=== PATIENT | male | born 1945 | race African-American/Black ===

== ENCOUNTER → 2019-10-05 | Day surgery (SDC) | payer MEDICARE ==
[2019-09-30 10:37] LABS: BASOPHILS % 0.8 % (0.0-1.0); EOSINOPHILS # (AUTO) 0.1 (0.0-0.4); EOSINOPHILS % 1.4 % (0.0-6.0); HEMATOCRIT 35.2 % (38.2-49.6); HEMOGLOBIN 11.7 g/dL (14.0-18.0); LYMPHOCYTES # (AUTO) 1.4 (1.0-3.2); LYMPHOCYTES % 28.2 % (18.0-39.1); MEAN CORPUSCULAR HEMOGLOBIN 31.3 pg (28-32); MEAN CORPUSCULAR HGB CONC 33.2 g/dL (31-35); MEAN CORPUSCULAR VOLUME 94.1 fL (81-99); MONOCYTES # (AUTO) 0.5 (0.2-0.8); MONOCYTES % 9.7 % (4.4-11.3); NEUTROPHILS # (AUTO) 2.9 (2.1-6.9); NEUTROPHILS % 59.7 % (38.7-80.0); PLATELET COUNT 174 x10e3/uL (140-360); RED BLOOD COUNT 3.74 x10e6/uL (4.3-5.7); RED CELL DISTRIBUTION WIDTH 13.2 % (11.7-14.4)
[2019-09-30 11:09] LABS: ALANINE AMINOTRANSFERASE 14 IU/L (0-55); ALBUMIN 3.9 g/dL (3.5-5.0); ALBUMIN/GLOBULIN RATIO 1.1 (0.8-2.0); ALKALINE PHOSPHATASE 69 IU/L (40-150); ANION GAP 11.2 mmol/L (8-16); BLOOD UREA NITROGEN 11 mg/dL (7-26); BUN/CREATININE RATIO 9 (6-25); CALCIUM 9.2 mg/dL (8.4-10.2); CARBON DIOXIDE 28 mmol/L (22-29); CHLORIDE 106 mmol/L (98-107); CREATININE, SERUM 1.21 mg/dL (0.72-1.25); EST GLOMERULAR FILTRATION RATE > 60 ML/MIN (60-); GLUCOSE 97 mg/dL (74-118); POTASSIUM 4.2 mmol/L (3.5-5.1); SODIUM 141 mmol/L (136-145)
[2019-10-05] VITALS (8 sets, daily range): BP systolic 98–118; BP diastolic 62–85
[~2019-10-05] VITALS: Ht 180.3 cm; Wt 81.2 kg
[~2019-10-05] MED LIST: ALPRAZOLAM 0.5 MG TAB ONE; DIPHENHYDRAMINE HCL 25 MG CAP ONE; FENTANYL CITRATE/PF 100MCG/2 ML INJ ONE; HEPARIN SOD/SOD CHLORIDE 2,000 ML ONE; IOPAMIDOL 370 MG/ML 200 ML INFUS..BTL INJ ONE; LIDOCAINE HCL 2% LOCAL 20 ML VIAL ONE; MIDAZOLAM HCL 2 MG/2 ML VIAL ONE; SODIUM CHLORIDE 0.9% 1000ML 1,000 ML ONE; VERAPAMIL HCL 2.5 MG/ML 2 ML VIAL ONE
--- OUTSIDE RECORDS SUMMARY | 2019-10-05 07:16 | XMS REPORT ---
Author [facility] Address Unknown Phone Unavailable Care Team Providers Care Certified Hyperbaric Technician Name Role Phone Unavailable Unavailable Problems This patient has no known problems. Allergies, Adverse Reactions, Alerts This patient has no known allergies or adverse reactions. Medications This patient has no known medications. Encounters Start Date/Time End Date/Time Encounter Type Admission Type Attending Clinicians Care Facility Care Department Encounter ID 2019-09-04 14:47:00 2019-09-04 14:47:00 Outpatient [facility] [id number] 2019-07-15 09:39:00 2019-07-15 09:39:00 Outpatient [facility] [id number] Results Test Description Test Time Test Comments Text Results Atomic Results Result Comments Creatine Kinase 2019-09-14 21:57:15 CK (test code=CK) 210 U/L 39-308 Creatine Kinase MB [id number] 21:57:15* Test Item Value Reference Range Comments CKMB (test code=CKMB) 2.6 ng/mL 0.0-4.9 CKMB % (test code=CKMB %) 1.2 % 0.0-3.4 POC [id number] 20:33:35* Test Item Value Reference Range Comments Glucose POC (test code=Glucose POC) 123 mg/dL 70-115 If you consider your patient critically ill, the Lacy-Accu Check Infrom II meter should not be used for Glucose determination. Draw a venous Glucose and send to the main Lab for analysis. Creatine [id number] 19:22:43* Test Item Value Reference Range Comments CK (test code=CK) 223 U/L 39-308 Troponin [id number] 19:21:26* Test Item Value Reference Range Comments Troponin-T (test code=Troponin-T) 72.200 ng/L 0.000-22.000 Critical results called to Rukhsana Sears at 09/14/2019 19:20:53 [employer] by [employer]. Read back and verified? yesThe CV of the assay at 99th percentile for both male and female patient population is < 10%. A rise and fall in OPAL with at least one value above the 99th percentile with clinical evidence of myocardial ischemia would support a diagnosis of AMI. A delta of at least 20% is recommended to assess acute changes in results above the 99th percentile in serial measurements. Stable OPAL levels (<20%) delta above the 99th percentile URL would support a diagnosis of chronic myocardial injury. POC [id number] 17:48:11* Test Item Value Reference Range Comments Glucose POC (test code=Glucose POC) 136 mg/dL 70-115 If you consider your patient critically ill, the Lacy-Accu Check Infrom II meter should not be used for Glucose determination. Draw a venous Glucose and send to the main Lab for analysis. Prothrombin Time and [id number] 14:37:38* Test Item Value Reference Range Comments Prothrombin Time (test code=Prothrombin Time) 12.5 seconds 9.8-13.4 INR (test code=INR) 1.1 ratio 0.6-1.2 Partial Thromboplastin [id number] 14:37:38* Test Item Value Reference Range Comments Partial Thromboplastin Time (test code=Partial Thromboplastin Time) 29.80 seconds 24.39-37.25 Comprehensive Metabolic [id number] 14:05:18* Test Item Value Reference Range Comments Sodium Level (test code=Sodium Level) 135.0 mmol/L 135.0-145.0 Potassium Level (test code=Potassium Level) see comment mmol/L 3.5-5.1 k=5.2ast=35Specimen slightly hemolyzed; K and AST may be falsely elevated. Suggest verify by recollect.willy montanez Chloride Level (test code=Chloride Level) 101 mmol/L 98-105 CO2 (test code=CO2) 20 mmol/L 22-29 Anion Gap (test code=Anion Gap) 14 mmol/L 7-16 BUN (test code=BUN) 13.90 mg/dL 8.00-23.00 Creatinine Level (test code=Creatinine Level) 1.40 mg/dL 0.70-1.20 BUN/Creat Ratio (test code=BUN/Creat Ratio) 10 Glucose Level (test code=Glucose Level) 126 mg/dL 70-115 Calcium Level (test code=Calcium Level) 9.1 mg/dL 8.3-10.5 Alk Phos (test code=Alk Phos) 75 U/L 40-129 Bilirubin Total (test code=Bilirubin Total) 0.4 mg/dL 0.1-0.9 Albumin Level (test code=Albumin Level) 4.3 g/dL 3.5-5.2 Protein Total (test code=Protein Total) 7.6 g/dL 6.4-8.3 ALT (test code=ALT) 15 U/L 1-41 AST (test code=AST) see comment U/L 1-40 k=5.2ast=35Specimen slightly hemolyzed; K and AST may be falsely elevated. Suggest verify by recollect.d lisseth Globulin (test code=Globulin) 3.3 g/dL 2.9-3.1 A/G Ratio (test code=A/G Ratio) 1.3 ratio eGFR AA (test code=eGFR AA) 60 mL/min/1.73 m2 eGFR (estimated Glomerular Filtration Rate) is an estimated value, calculated from the patient's serum creatinine using the MDRD equation. It is NOT the patient's actual GFR. The eGFR provides a more clinically useful measure of kidney disease than serum creatinine alone.This calculation takes sex and race into account, if the information is provided. If the race is not provided, and the patient is -[place], multiply by 1.212. If sex is not provided, and the patient is female, multiply by 0.742. Results for patients <18 years of age have not been validated by the MDRD study and should be interpreted with caution. eGFR Result Interpretation:eGFR > or=60 is in the Normal RangeeGFR < 60 may mean kidney diseaseeGFR < 15 may mean kidney failure Ranges recommended by the National Kidney Foundation, http://nkdep.nih.gov Creatine [id number] 14:05:18* Test Item Value Reference Range Comments CK (test code=CK) 261 U/L 39-308 Comprehensive Metabolic [id number] 14:05:18* Test Item Value Reference Range Comments Sodium Level (test code=Sodium Level) 135.0 mmol/L 135.0-145.0 Potassium Level (test code=Potassium Level) see comment mmol/L 3.5-5.1 k=5.2ast=35Specimen slightly hemolyzed; K and AST may be falsely elevated. Suggest verify by recollect.d lisseth Chloride Level (test code=Chloride Level) 101 mmol/L 98-105 CO2 (test code=CO2) 20 mmol/L 22-29 Anion Gap (test code=Anion Gap) 14 mmol/L 7-16 BUN (test code=BUN) 13.90 mg/dL 8.00-23.00 Creatinine Level (test code=Creatinine Level) 1.40 mg/dL 0.70-1.20 BUN/Creat Ratio (test code=BUN/Creat Ratio) 10 Glucose Level (test code=Glucose Level) 126 mg/dL 70-115 Calcium Level (test code=Calcium Level) 9.1 mg/dL 8.3-10.5 Alk Phos (test code=Alk Phos) 75 U/L 40-129 Bilirubin Total (test code=Bilirubin Total) 0.4 mg/dL 0.1-0.9 Albumin Level (test code=Albumin Level) 4.3 g/dL 3.5-5.2 Protein Total (test code=Protein Total) 7.6 g/dL 6.4-8.3 ALT (test code=ALT) 15 U/L 1-41 AST (test code=AST) see comment U/L 1-40 k=5.2ast=35Specimen slightly hemolyzed; K and AST may be falsely elevated. Suggest verify by recollect.d lisseth Globulin (test code=Globulin) 3.3 g/dL 2.9-3.1 A/G Ratio (test code=A/G Ratio) 1.3 ratio eGFR AA (test code=eGFR AA) 60 mL/min/1.73 m2 eGFR (estimated Glomerular Filtration Rate) is an estimated value, calculated from the patient's serum creatinine using the MDRD equation. It is NOT the patient's actual GFR. The eGFR provides a more clinically useful measure of kidney disease than serum creatinine alone.This calculation takes sex and race into account, if the information is provided. If the race is not provided, and the patient is -[place], multiply by 1.212. If sex is not provided, and the patient is female, multiply by 0.742. Results for patients <18 years of age have not been validated by the MDRD study and should be interpreted with caution. eGFR Result Interpretation:eGFR > or=60 is in the Normal RangeeGFR < 60 may mean kidney diseaseeGFR < 15 may mean kidney failure Ranges recommended by the National Kidney Foundation, http://nkdep.nih.gov Creatine Kinase MB [id number] 14:05:18* Test Item Value Reference Range Comments CKMB (test code=CKMB) 2.6 ng/mL 0.0-4.9 CKMB % (test code=CKMB %) 1.0 % 0.0-3.4 Pro B Natriuretic [id number] 14:05:18* Test Item Value Reference Range Comments NT-proBNP (test code=NT-proBNP) 70 pg/mL 0-124 Troponin [id number] 14:05:18* Test Item Value Reference Range Comments Troponin-T (test code=Troponin-T) 19.080 ng/L 0.000-22.000 The CV of the assay at 99th percentile for both male and female patient population is < 10%. A rise and fall in OPAL with at least one value above the 99th percentile with clinical evidence of myocardial ischemia would support a diagnosis of AMI. A delta of at least 20% is recommended to assess acute changes in results above the 99th percentile in serial measurements. Stable OPAL levels (<20%) delta above the 99th percentile URL would support a diagnosis of chronic myocardial injury. Comprehensive Metabolic [id number] 14:05:18* Test Item Value Reference Range Comments Sodium Level (test code=Sodium Level) 135.0 mmol/L 135.0-145.0 Potassium Level (test code=Potassium Level) see comment mmol/L 3.5-5.1 k=5.2ast=35Specimen slightly hemolyzed; K and AST may be falsely elevated. Suggest verify by recollect.willy montanez Chloride Level (test code=Chloride Level) 101 mmol/L 98-105 CO2 (test code=CO2) 20 mmol/L 22-29 Anion Gap (test code=Anion Gap) 14 mmol/L 7-16 BUN (test code=BUN) 13.90 mg/dL 8.00-23.00 Creatinine Level (test code=Creatinine Level) 1.40 mg/dL 0.70-1.20 BUN/Creat Ratio (test code=BUN/Creat Ratio) 10 Glucose Level (test code=Glucose Level) 126 mg/dL 70-115 Calcium Level (test code=Calcium Level) 9.1 mg/dL 8.3-10.5 Alk Phos (test code=Alk Phos) 75 U/L 40-129 Bilirubin Total (test code=Bilirubin Total) 0.4 mg/dL 0.1-0.9 Albumin Level (test code=Albumin Level) 4.3 g/dL 3.5-5.2 Protein Total (test code=Protein Total) 7.6 g/dL 6.4-8.3 ALT (test code=ALT) 15 U/L 1-41 AST (test code=AST) see comment U/L 1-40 k=5.2ast=35Specimen slightly hemolyzed; K and AST may be falsely elevated. Suggest verify by recollect.d lisseth Globulin (test code=Globulin) 3.3 g/dL 2.9-3.1 A/G Ratio (test code=A/G Ratio) 1.3 ratio eGFR AA (test code=eGFR AA) 60 mL/min/1.73 m2 eGFR (estimated Glomerular Filtration Rate) is an estimated value, calculated from the patient's serum creatinine using the MDRD equation. It is NOT the patient's actual GFR. The eGFR provides a more clinically useful measure of kidney disease than serum creatinine alone.This calculation takes sex and race into account, if the information is provided. If the race is not provided, and the patient is -[place], multiply by 1.212. If sex is not provided, and the patient is female, multiply by 0.742. Results for patients <18 years of age have not been validated by the MDRD study and should be interpreted with caution. eGFR Result Interpretation:eGFR > or=60 is in the Normal RangeeGFR < 60 may mean kidney diseaseeGFR < 15 may mean kidney failure Ranges recommended by the National Kidney Foundation, http://nkdep.nih.gov eGFR Non-AA (test code=eGFR Non-AA) 49.40 mL/min/1.73 m2 eGFR (estimated Glomerular Filtration Rate) is an estimated value, calculated from the patient's serum creatinine using the MDRD equation. It is NOT the patient's actual GFR. The eGFR provides a more clinically useful measure of kidney disease than serum creatinine alone.This calculation takes sex and race into account, if the information is provided. If the race is not provided, and the patient is -[place], multiply by 1.212. If sex is not provided, and the patient is female, multiply by 0.742. Results for patients <18 years of age have not been validated by the MDRD study and should be interpreted with caution. eGFR Result Interpretation:eGFR > or=60 is in the Normal RangeeGFR < 60 may mean kidney diseaseeGFR < 15 may mean kidney failure Ranges recommended by the National Kidney Foundation, http://nkdep.nih.gov XR Chest 1 View [id number] 13:58:43Patient: JOHAN MCCRAY Date/Time09/14/2019 13:26 CSTReason for ExamChest painReportCHEST 1 VIEWCLINICAL INFORMATION: Chest painCOMPARISON:FINDINGS:The lungs are well-expanded and clear. No airspace consolidation is seen. No pneumothorax or pleural effusion is present. The cardiac silhouette is normal in size. The aorta is tortuous. The bones are grossly intact.IMPRESSION:No acute cardiopulmonary finding.LOCATION: R16 Final Dictated by: MD Shen Adam FDictated DT/TM: 09/14/2019 1:58 pmSigned by: MD Shen Adam FSigned (Electronic Signature): 09/14/2019 1:58 pmComplete Blood Count with [id number] 13:22:25* Test Item Value Reference Range Comments WBC (test code=WBC) 6.3 x10 4.4-10.5 RBC (test code=RBC) 3.91 x10 4.10-5.70 Hgb (test code=Hgb) 12.3 g/dL 13.4-17.4 Hct (test code=Hct) 37.7 % 38.7-52.0 MCV (test code=MCV) 96.40 fL 80.00-100.00 MCHC (test code=MCHC) 32.60 g/dL 32.00-37.50 RDW CV (test code=RDW CV) 13.3 % 11.5-14.5 MCH (test code=MCH) 31.5 pg 27.0-32.5 Platelets (test code=Platelets) 188.0 x10 140.0-440.0 MPV (test code=MPV) 9.9 fL Slide Review (test code=Slide Review) Auto Auto Result created by [email or web address] nRBC (test code=nRBC) 0 NRBC Abs (test code=NRBC Abs) 0.00 x10 IPF (test code=IPF) 0 % Automated [id number] 13:22:25* Test Item Value Reference Range Comments Neutro Auto (test code=Neutro Auto) 73.9 % 36.0-70.0 Lymph Auto (test code=Lymph Auto) 17.0 % 12.0-44.0 [place] Auto (test code=[place] Auto) 7.9 % 0.0-11.0 Eos, Auto (test code=Eos, Auto) 0.5 % 0.0-7.0 Basophil Auto (test code=Basophil Auto) 0.5 % 0.0-2.0 Neutro Absolute (test code=Neutro Absolute) 4.7 x10 1.6-7.4 Lymph Absolute (test code=Lymph Absolute) 1.07 x10 .50-4.60 [place] Absolute (test code=[place] Absolute) .50 x10 .00-1.20 Eos Absolute (test code=Eos Absolute) 0.03 x10 0.00-0.74 Baso Absolute (test code=Baso Absolute) 0.03 x10 0.00-0.21 IG [id number] 13:22:25* Test Item Value Reference Range Comments IG (test code=IG) 0.2 % 0.0-5.0 IG Abs (test code=IG Abs) 0 x10 Comprehensive Metabolic [id number] 13:19:49* Test Item Value Reference Range Comments Sodium Level (test code=Sodium Level) 140.0 mmol/L 135.0-145.0 Potassium Level (test code=Potassium Level) 4.4 mmol/L 3.5-5.1 Chloride Level (test code=Chloride Level) 103 mmol/L 98-105 CO2 (test code=CO2) 23 mmol/L 22-29 Anion Gap (test code=Anion Gap) 14 mmol/L 7-16 BUN (test code=BUN) 13.00 mg/dL 8.00-23.00 Creatinine Level (test code=Creatinine Level) 1.20 mg/dL 0.70-1.20 BUN/Creat Ratio (test code=BUN/Creat Ratio) 11 Glucose Level (test code=Glucose Level) 104 mg/dL 70-115 Calcium Level (test code=Calcium Level) 9.6 mg/dL 8.3-10.5 Alk Phos (test code=Alk Phos) 80 U/L 40-129 Bilirubin Total (test code=Bilirubin Total) 0.3 mg/dL 0.1-0.9 Albumin Level (test code=Albumin Level) 4.4 g/dL 3.5-5.2 Protein Total (test code=Protein Total) 7.2 g/dL 6.4-8.3 ALT (test code=ALT) 14 U/L 1-41 AST (test code=AST) 30 U/L 1-40 Globulin (test code=Globulin) 2.8 g/dL 2.9-3.1 A/G Ratio (test code=A/G Ratio) 1.6 ratio Comprehensive Metabolic [id number] 13:19:49* Test Item Value Reference Range Comments Sodium Level (test code=Sodium Level) 140.0 mmol/L 135.0-145.0 Potassium Level (test code=Potassium Level) 4.4 mmol/L 3.5-5.1 Chloride Level (test code=Chloride Level) 103 mmol/L 98-105 CO2 (test code=CO2) 23 mmol/L 22-29 Anion Gap (test code=Anion Gap) 14 mmol/L 7-16 BUN (test code=BUN) 13.00 mg/dL 8.00-23.00 Creatinine Level (test code=Creatinine Level) 1.20 mg/dL 0.70-1.20 BUN/Creat Ratio (test code=BUN/Creat Ratio) 11 Glucose Level (test code=Glucose Level) 104 mg/dL 70-115 Calcium Level (test code=Calcium Level) 9.6 mg/dL 8.3-10.5 Alk Phos (test code=Alk Phos) 80 U/L 40-129 Bilirubin Total (test code=Bilirubin Total) 0.3 mg/dL 0.1-0.9 Albumin Level (test code=Albumin Level) 4.4 g/dL 3.5-5.2 Protein Total (test code=Protein Total) 7.2 g/dL 6.4-8.3 ALT (test code=ALT) 14 U/L 1-41 AST (test code=AST) 30 U/L 1-40 Globulin (test code=Globulin) 2.8 g/dL 2.9-3.1 A/G Ratio (test code=A/G Ratio) 1.6 ratio eGFR AA (test code=eGFR AA) >60 mL/min/1.73 m2 eGFR (estimated Glomerular Filtration Rate) is an estimated value, calculated from the patient's serum creatinine using the MDRD equation. It is NOT the patient's actual GFR. The eGFR provides a more clinically useful measure of kidney disease than serum creatinine alone.This calculation takes sex and race into account, if the information is provided. If the race is not provided, and the patient is -[place], multiply by 1.212. If sex is not provided, and the patient is female, multiply by 0.742. Results for patients <18 years of age have not been validated by the MDRD study and should be interpreted with caution. eGFR Result Interpretation:eGFR > or=60 is in the Normal RangeeGFR < 60 may mean kidney diseaseeGFR < 15 may mean kidney failure Ranges recommended by the National Kidney Foundation, http://nkdep.nih.gov Comprehensive Metabolic [id number] 13:19:49* Test Item Value Reference Range Comments Sodium Level (test code=Sodium Level) 140.0 mmol/L 135.0-145.0 Potassium Level (test code=Potassium Level) 4.4 mmol/L 3.5-5.1 Chloride Level (test code=Chloride Level) 103 mmol/L 98-105 CO2 (test code=CO2) 23 mmol/L 22-29 Anion Gap (test code=Anion Gap) 14 mmol/L 7-16 BUN (test code=BUN) 13.00 mg/dL 8.00-23.00 Creatinine Level (test code=Creatinine Level) 1.20 mg/dL 0.70-1.20 BUN/Creat Ratio (test code=BUN/Creat Ratio) 11 Glucose Level (test code=Glucose Level) 104 mg/dL 70-115 Calcium Level (test code=Calcium Level) 9.6 mg/dL 8.3-10.5 Alk Phos (test code=Alk Phos) 80 U/L 40-129 Bilirubin Total (test code=Bilirubin Total) 0.3 mg/dL 0.1-0.9 Albumin Level (test code=Albumin Level) 4.4 g/dL 3.5-5.2 Protein Total (test code=Protein Total) 7.2 g/dL 6.4-8.3 ALT (test code=ALT) 14 U/L 1-41 AST (test code=AST) 30 U/L 1-40 Globulin (test code=Globulin) 2.8 g/dL 2.9-3.1 A/G Ratio (test code=A/G Ratio) 1.6 ratio eGFR AA (test code=eGFR AA) >60 mL/min/1.73 m2 eGFR (estimated Glomerular Filtration Rate) is an estimated value, calculated from the patient's serum creatinine using the MDRD equation. It is NOT the patient's actual GFR. The eGFR provides a more clinically useful measure of kidney disease than serum creatinine alone.This calculation takes sex and race into account, if the information is provided. If the race is not provided, and the patient is -[place], multiply by 1.212. If sex is not provided, and the patient is female, multiply by 0.742. Results for patients <18 years of age have not been validated by the MDRD study and should be interpreted with caution. eGFR Result Interpretation:eGFR > or=60 is in the Normal RangeeGFR < 60 may mean kidney diseaseeGFR < 15 may mean kidney failure Ranges recommended by the National Kidney Foundation, http://nkdep.nih.gov eGFR Non-AA (test code=eGFR Non-AA) 59.02 mL/min/1.73 m2 eGFR (estimated Glomerular Filtration Rate) is an estimated value, calculated from the patient's serum creatinine using the MDRD equation. It is NOT the patient's actual GFR. The eGFR provides a more clinically useful measure of kidney disease than serum creatinine alone.This calculation takes sex and race into account, if the information is provided. If the race is not provided, and the patient is -[place], multiply by 1.212. If sex is not provided, and the patient is female, multiply by 0.742. Results for patients <18 years of age have not been validated by the MDRD study and should be interpreted with caution. eGFR Result Interpretation:eGFR > or=60 is in the Normal RangeeGFR < 60 may mean kidney diseaseeGFR < 15 may mean kidney failure Ranges recommended by the National Kidney Foundation, http://nkdep.nih.gov Pro B Natriuretic [id number] 13:19:24* Test Item Value Reference Range Comments NT-proBNP (test code=NT-proBNP) 51 pg/mL 0-124 Troponin [id number] 12:01:47* Test Item Value Reference Range Comments Troponin-T (test code=Troponin-T) 9.470 ng/L 0.000-22.000 The CV of the assay at 99th percentile for both male and female patient population is < 10%. A rise and fall in OPAL with at least one value above the 99th percentile with clinical evidence of myocardial ischemia would support a diagnosis of AMI. A delta of at least 20% is recommended to assess acute changes in results above the 99th percentile in serial measurements. Stable OPAL levels (<20%) delta above the 99th percentile URL would support a diagnosis of chronic myocardial injury. Complete Blood Count with [id number] 11:43:38* Test Item Value Reference Range Comments WBC (test code=WBC) 6.1 x10 4.4-10.5 RBC (test code=RBC) 3.70 x10 4.10-5.70 Hgb (test code=Hgb) 11.7 g/dL 13.4-17.4 MCV (test code=MCV) 94.30 fL 80.00-100.00 Hct (test code=Hct) 34.9 % 38.7-52.0 MCHC (test code=MCHC) 33.50 g/dL 32.00-37.50 RDW CV (test code=RDW CV) 13.3 % 11.5-14.5 MCH (test code=MCH) 31.6 pg 27.0-32.5 Platelets (test code=Platelets) 183.0 x10 140.0-440.0 MPV (test code=MPV) 10.5 fL Slide Review (test code=Slide Review) Auto Auto Result created by [email or web address]_REV_AUTO nRBC (test code=nRBC) 0 NRBC Abs (test code=NRBC Abs) 0.00 x10 IPF (test code=IPF) 0 % Automated [id number] 11:43:38* Test Item Value Reference Range Comments Neutro Auto (test code=Neutro Auto) 61.6 % 36.0-70.0 Lymph Auto (test code=Lymph Auto) 28.2 % 12.0-44.0 [place] Auto (test code=[place] Auto) 8.7 % 0.0-11.0 Eos, Auto (test code=Eos, Auto) 0.8 % 0.0-7.0 Basophil Auto (test code=Basophil Auto) 0.5 % 0.0-2.0 Neutro Absolute (test code=Neutro Absolute) 3.8 x10 1.6-7.4 Lymph Absolute (test code=Lymph Absolute) 1.72 x10 .50-4.60 [place] Absolute (test code=[place] Absolute) .53 x10 .00-1.20 Eos Absolute (test code=Eos Absolute) 0.05 x10 0.00-0.74 Baso Absolute (test code=Baso Absolute) 0.03 x10 0.00-0.21 IG [id number] 11:43:38* Test Item Value Reference Range Comments IG (test code=IG) 0.2 % 0.0-5.0 IG Abs (test code=IG Abs) 0 x10 XR Chest 1 View [id number] 11:12:05Patient: JOHAN MCCRAY INA Date/Time09/08/2019 11:06 CDTReason for ExamChest painReportChest, one viewLOCATION CODE: R 16HISTORY: DyspneaCOMPARISON: NoneFINDINGS:The heart size is normal and the lungs are clear. There is no evidence of pleural effusion, pulmonary edema or patchy lobar consolidation.IMPRESSION:1. No acute cardiopulmonary disease Final Dictated by: MD Crawford Roman PDictated DT/TM: 09/08/2019 11:11 amSigned by: MD Crawford Roman PSigned (Electronic Signature): 09/08/2019 11:12 am
--- NOTE | 2019-10-06 09:29 | Operative Report ---
DATE OF PROCEDURE: 10/05/2019 SURGEON: Ramu Hamlin MD INDICATIONS: Coronary artery disease, abnormal stress test. PROCEDURES PERFORMED: 1. Left heart catheterization, selective coronary angiography, left ventriculography. 2. Deployment of right wrist TR band. COMPLICATIONS: None. RECOMMENDATIONS: Medical therapy. DESCRIPTION OF PROCEDURE: Access obtained in the right radial artery. A 5-Japanese sheath was placed. Coronary angiography demonstrated patent left main, left anterior descending artery stents. Circumflex stent, 30% in-stent restenosis. Left anterior descending artery diffuse 30% to 50% stenosis, mid RCA 50% stenosis. LV end-diastolic pressure of 8. LV ejection fraction 60%. No gradient across the aortic valve on pullback. Right wrist TR band applied. The patient discharged home same day. Ramu Hamlin MD KSB/MODL /[id number]
== END | disposition home or self-care (01) ==
LOC: CATH LAB 07:14
PROVIDERS: ATTEND Internal Medicine Interventional Cardiology
DX: I25.10 Atherosclerotic heart disease of native coronary artery without angina pectoris (principal); R94.39 Abnormal result of other cardiovascular function study; E11.9 Type 2 diabetes mellitus without complications; E78.00 Pure hypercholesterolemia, unspecified; D64.9 Anemia, unspecified; Z01.812 Encounter for preprocedural laboratory examination; Z79.84 Long term (current) use of oral hypoglycemic drugs; Z79.82 Long term (current) use of aspirin; Z95.5 Presence of coronary angioplasty implant and graft; Z86.19 Personal history of other infectious and parasitic diseases
CPT/HCPCS: 36415; 80053; 85025; 93458; C1769; C1887; J2001; J2250; J3010; J7030; Q9967; 99152